=== PATIENT | female | born 1990 | race Caucasian/White ===

== ENCOUNTER → 2016-10-20 | Outpatient (CLI) | payer MEDICAID ==
[~2016-10-20] MED LIST: ETODOLAC400 MG PO; FERROUS SULFAT325 M1 PO; IMITREX50 MG OR; KEFLEX 500MG.500 MG PO; LORTAB 5/500 501 TAB PO; METHOCARBAMOL750 M1 PO; MOTRIN400 MG PO; NAPROSYN 500MG500 MG PO; NOMEDS; PERCOCET 5/3251 EACH PO; PRENATAL PLUS1 TA1 PO; SEPTRA DS 800 M1 TAB PO; VICODIN 5/500 T1 TAB PO; VOLTAREN75 MG PO; ZOFRAN4 MG PO
--- NOTE | 2016-11-03 17:38 | RADIOLOGY REPORT PS360 ---
US BIOPSY OR PARACENTESIS, US BREAST-RT COMPLETE W/AXILLA, FNA/W GUIDANCE CLINICAL INDICATION: BREAST LESION ORDERING PHYSICIAN: DARIAN FAROOQ MD PATIENT AGE: 26 years COMPARISON: 07/29/2016 ultrasound FINDINGS: US BIOPSY OR PARACENTESIS, US BREAST-RT COMPLETE W/AXILLA, FNA/W GUIDANCE HISTORY: BREAST LESION ORDERING PHYSICIAN: DARIAN FAROOQ MD PATIENT AGE: 26 years TECHNIQUE: Following obtaining informed consent, using aseptic technique and local anesthesia with buffered lidocaine, fine-needle aspiration was performed of the nodule of interest using sonographic guidance. 3 passes were made into the nodule with a 25-gauge needle. Specimen was given to cytology. Core biopsy was also obtained. 2 passes were made with a 19-gauge core biopsy needle. The patient tolerated the procedure well without evidence of immediate complications and left the ultrasound suite in stable condition. Pathology: Benign breast tissue with stromal fibrosis and changes suggestive of fibroadenoma Cytology: Negative for malignancy. Compatible with fibroadenoma IMPRESSION: Successful sonographic guided fine needle aspiration and core biopsy of the right breast showing findings consistent with a fibroadenoma
== END ==
LOC: RAD 13:22
PROC: 0H9T3ZX Drainage of Right Breast, Percutaneous Approach, Diagnostic (ICD-10-PCS; principal; 2016-10-20)
DX: N63 Unspecified lump in breast (principal)

== ENCOUNTER → 2016-11-09 | Outpatient (CLI) | payer MEDICAID ==
[2016-11-09 13:45] LABS: HEMOGLOBIN 14.6 g/dL (12.2-16.2); LYMPH # 2.7 K/mm3 (0.7-4.5); LYMPH % 27.4 % (10-50.0)
[2016-11-09 18:28] LABS: BUN 10 mg/dL (7-18)
[2016-11-09 18:38] LABS: GFR (ESTIMATED) 101 ML/MIN (59-)
== END ==
LOC: LAB 13:23
PROVIDERS: Surgery
DX: N63 Unspecified lump in breast (principal); Z01.812 Encounter for preprocedural laboratory examination

== ENCOUNTER 2016-11-18 08:58 | Day surgery (SDC) | payer MEDICAID ==
[~2016-11-18] VITALS: Ht 165.1 cm; Wt 63.5 kg
--- NOTE | 2016-11-18 13:05 | Operative Note ---
Surgeon/Diagnoses Surgeon/Master Deputy [employer] Security(s) Date of procedure: 11/18/16 Surgeon: MD Nely Farooq Master [address] Security(s): Sadiq Quiros Diagnoses Pre-op diagnosis: RIGHT breast lesion (likely fibroadenoma) Post-op diagnosis Same Procedure Procedure Procedure: Needle localized excisional biopsy of RIGHT breast lesion Indications: CARLOS CHRISTOPHER is a 26 year-old Female with a history of RIGHT breast lesion with recent core biopsy consistent with fibroadenoma. Findings: Complete excision confirmed radiographically Procedure Description: After informed consent was obtained, the patient was taken to the radiology department for localization needle placement. Please see separate report for detail. She was then transferred to the operating room and placed in the supine position. General anesthesia was induced and her RIGHT breast was prepped and draped in a sterile fashion. After infiltration of local anesthetic a curvilinear incision was made overlying the lesion. A small ellipse of skin was then excised as the lesion was very close to the skin. The underlying breast tissue was carefully dissected with electrocautery. The lesion was excised and passed off for pathologic evaluation after being marked for margin. The superficial margin was marked with a short non-dyed suture. The deep margin was marked with a long non-dyed suture. The lateral margin was marked with a long dyed suture. The superior margin was marked with a short dyed suture. Specimen radiographs confirmed appropriate and complete excision of the lesion. Electrocautery is less to achieve hemostasis. Metallic clips were placed along the wound base and margin. The deep subcutaneous tissue was reapproximated with interrupted Vicryl and skin was closed with 4-0 Monocryl in a running subcuticular manner. Steri-Strips were applied. The patient's anesthetic agents were reversed and she was transferred to recovery in stable condition. EBL (ml): 15 Anesthesia: General Complications: no immediate Specimens: RIGHT breast lesion Disposition Disposition: Stable to recovery from where she will be discharged home. She will follow-up in one week. at 1301
--- NOTE | 2016-11-18 13:12 | Anesthesia Record ---
Anesthesia Record Part II Discharge time: 1340 Destination: Same day surgery PACU nurse assessment review? Yes Patient is: Awake, Stable Anesthesia complications? No at 1312
--- NOTE | 2016-11-18 13:12 | Anesthesia Record ---
Anesthesia Record Part I Total IV fluids: 1000 EBL (ml): 10 Urine Output: 0 B/P: 138/75 % SaO2: 96 Pulse: 87 Resps: 12 Temp: 97.5 Patient is: Awake, Stable Stable to PACU at: 1310 at 1312
--- NOTE | 2016-11-18 13:54 | RADIOLOGY REPORT PS360 ---
US NEEDLE LOC RT EA ADD LESION, US BREAST-RT COMPLETE W/AXILLA DIG MAMM-DX UNI-RT W/CAD, COMPARISON: 10/20/2016 INDICATION: Right breast nodule ORDERING PHYSICIAN: DARIAN FAROOQ MD PATIENT AGE: 26 years Right breast ultrasound: Ultrasound is performed of the right breast confirm the persistent presence of a 1.3 cm solid nodule in the 6:00 region which is well-circumscribed corresponding to the previously biopsied nodule. No other abnormalities demonstrated Hook wire localization: Following obtaining informed consent using sonographic guidance under aseptic conditions and local anesthesia with 1% buffered lidocaine, a Kopan's wire was inserted into the right breast nodule at the 6:00 region using standard technique with post localization ultrasound showing the wire extending through the nodule. The patient tolerated the procedure well without evidence of medial location. Breast tissue specimen: Single specimen submitted and consent shows a requirement place with the nodule of interest within the tissue specimen. Ultrasound was also obtained demonstrating the nodule of interest. IMPRESSION: Successful wire localization of right breast nodule
[2016-11-18 20:37] VITALS: BP 119/72
== END 2016-11-18 14:15 | disposition home or self-care (01) ==
LOC: SDC 08:58
PROVIDERS: Surgery
PROC: 0HBT0ZX Excision of Right Breast, Open Approach, Diagnostic (ICD-10-PCS; principal; 2016-11-18 12:00)
DX: D48.61 Neoplasm of uncertain behavior of right breast (principal)
CPT/HCPCS: J2405

== ENCOUNTER → 2016-12-05 | Outpatient (CLI) | payer OTHER, MEDICAID ==
--- NOTE | 2016-12-05 16:19 | RADIOLOGY REPORT PS360 ---
[id number] (MIDDLE)-3 VIEWS HISTORY: Pain upon movement LEFT 3RD FINGER PAIN ORDERING PHYSICIAN: BARBARA GROVE PATIENT AGE: 26 years COMPARISON: None FINDINGS: No fracture or dislocation is evident. No significant degenerative change. No lytic or blastic change. Unremarkable soft tissues IMPRESSION: Negative left third finger
== END ==
LOC: RAD 10:48
DX: M79.645 Pain in left finger(s) (principal)

== ENCOUNTER → 2016-12-14 | Outpatient (CLI) | payer OTHER, MEDICAID ==
[2016-12-14 18:36] LABS: HEMOGLOBIN 14.1 g/dL (12.2-16.2); LYMPH # 3.5 K/mm3 (0.7-4.5); LYMPH % 33.5 % (10-50.0)
[2016-12-14 19:07] LABS: BUN 9 mg/dL (7-18)
[2016-12-14 19:34] LABS: GFR (ESTIMATED) 101 ML/MIN (59-)
[2016-12-16 08:44] LABS: Vitamin D, 25-Hydroxy 13.8 ng/mL (30.0-100.0)
[2016-12-16 09:38] LABS: Folate (Folic Acid) 11.5 ng/mL (>3.0)
== END ==
LOC: LAB 18:23
PROVIDERS: Physician Assistant
DX: S13.4XXD Sprain of ligaments of cervical spine, subsequent encounter (principal); M25.512 Pain in left shoulder; M54.2 Cervicalgia; M54.5 Low back pain; E55.9 Vitamin D deficiency, unspecified; V89.2XXD Person injured in unspecified motor-vehicle accident, traffic, subsequent encounter; R25.1 Tremor, unspecified

== ENCOUNTER 2017-01-24 08:46 | Emergency (ER) | payer MEDICAID ==
[~2017-01-24] VITALS: Ht 165.1 cm; Wt 65.8 kg
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
--- OUTSIDE RECORDS SUMMARY | 2017-01-24 08:53 | External Medical Summary Rpt | Continuity of Care Document ---
Author Author Organization Address Unknown Phone Unavailable Care Team Providers Care Chief Dietitian Name Role Phone , Unavailable Unavailable EMS [...]
--- OUTSIDE RECORDS SUMMARY | 2017-01-24 08:53 | External Medical Summary Rpt | Continuity of Care Document ---
Author Author Organization Address Unknown Phone Unavailable Care Team Providers Care Auditing Specialist Name Role Phone , Unavailable Unavailable EMS [...]
--- OUTSIDE RECORDS SUMMARY | 2017-01-24 08:53 | External Medical Summary Rpt | Continuity of Care Document ---
Author Author Organization Address Unknown Phone Unavailable Care Team Providers Care Air Crew Member Name Role Phone , Unavailable Unavailable EMS [...]
--- OUTSIDE RECORDS SUMMARY | 2017-01-24 08:53 | External Medical Summary Rpt | Continuity of Care Document ---
Author Author Organization Address Unknown Phone Unavailable Care Team Providers Care Social Media Assistant Name Role Phone , Unavailable Unavailable EMS [...]
--- OUTSIDE RECORDS SUMMARY | 2017-01-24 08:53 | External Medical Summary Rpt | Continuity of Care Document ---
Author Author Organization Address Unknown Phone Unavailable Care Team Providers Care Reverse Logistics Analyst Name Role Phone , Unavailable Unavailable EMS [...]
--- OUTSIDE RECORDS SUMMARY | 2017-01-24 08:55 | External Medical Summary Rpt | CCD ---
Demographics Preferred Language Estonian Marital Status Unknown Jain Affiliation Unknown Race Unknown Ethnic Group Unknown Author Author , AJ VALENTIN Address Unknown Phone Immunization Unable to retrieve immunization data due to connection failure with Immunization Registry. Please try again later.
--- OUTSIDE RECORDS SUMMARY | 2017-01-24 08:55 | External Medical Summary Rpt | CCD ---
Author Author Conduent Organization Conduent Address Unknown Phone Unavailable Purpose Continuity of Care Document - through 2016
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
--- OUTSIDE RECORDS SUMMARY | 2017-01-24 08:55 | External Medical Summary Rpt | CCD ---
Demographics Preferred Language American Marital Status Unknown Anglican Affiliation Unknown Race Unknown Ethnic Group Unknown Author Author , AJ VALENTIN Address Unknown Phone Immunization Unable to retrieve immunization data due to connection failure with Immunization Registry. Please try again later.
--- OUTSIDE RECORDS SUMMARY | 2017-01-24 08:56 | External Medical Summary Rpt ---
Author Author HOMERO Reddy, HOMERO Kreyonic Organization [employer] Address Unknown Phone Unavailable Results Cobalamin (Vitamin B12) [Mass/volume] in Serum Observa Value Referen Units Interpr Notes Date tion ce etation Range Cobalamin 211 - 946 pg/mL No Performed Dec 14 (Vitamin informati at: CB 2016 3:10 B12) on in - [facility] PM [Mass/vol source ume] in data [address] [address] Serum 0 [place], [place] [id number] Industrial Chemistry Teacher: Michael Phelps PhD, Phone: [phone] Folate [Mass/volume] in Serum or Plasma Observa Value Referen Units Interpr Notes Date tion ce etation Range Folate >3.0 ng/mL No A serum Dec 14 [Mass/vol informati folate 2016 3:10 ume] in on in concentra PM Serum or source tion of Plasma data less than 3.1 ng/mL isconside red to represent clinical deficienc y. 25-Hydroxyvitamin D [Mass/volume] in Serum or Plasma Observa Value Referen Units Interpr Notes Date tion ce etation Range 25-Hydrox 30.0 - ng/mL Low Vitamin D Oct 25 yvitamin 100.0 2016 3:10 D deficienc PM [Mass/vol y has ume] in been Serum or defined Plasma by the [place] ofMedicin e and an Endocrine Society practice guideline as alevel of serum 25-OH vitamin D less than 20 ng/mL (1,2).The Endocrine Society went on to further define vitamin Dinsuffic iency as a level between 21 and 29 ng/mL (2).1. IOM (Institut e of Medicine) . 2010. Dietary reference intakes for calcium and D. [place]: [employer] al [employer].2. Maureen MF, Rizwan NC, Joslyn Kendall ERIC, et al.Evalua tion, treatment , and preventio n of vitamin Ddeficien cy: an Endocrine Society clinical practiceg fadumo. JCEM. 2010; 96(7):191 1-30.Perf ormed at: CB - [facility] [address] [address] [address] [place], [place] [id number] Industrial Chemistry Teacher: Michael Phelps PhD, Phone: [phone] Comprehensive metabolic 2000 panel in Serum or Plasma Observa Value Referen Units Interpr Notes Date tion ce etation Range Albumin/G 1.1 - 1.8 No Low No Nov 25 lobulin informati informati 2016 3:10 [Mass on in on in PM ratio] in source source Serum or data data Plasma Albumin 3.4 - 5.0 gm/dL Normal No Nov 25 [Mass/vol informati 2017 3:10 ume] in on in PM Serum or source Plasma data Alkaline 46 - 116 U/L High No Nov 25 phosphata informati 2017 3:10 se on in PM [Enzymati source c data activity/ volume] in Serum or Plasma Bilirubin 0.2 - 1.0 mg/dL Normal No Dec 14 .total informati 2016 3:10 [Mass/vol on in PM ume] in source Serum or data Plasma Urea 7 - 18 mg/dL Normal No Nov 25 nitrogen informati 2016 3:10 [Mass/vol on in PM ume] in source Serum or data Plasma Calcium 8.5 - mg/dL Normal No Nov 25 [Mass/vol 10.1 informati 2017 3:10 ume] in on in PM Serum or source Plasma data Chloride 98 - 107 mmoL/L Normal No Dec 14 [Moles/vo informati 2016 3:10 lume] in on in PM Serum or source Plasma data Carbon 21.0 - mmoL/L Normal No Dec 14 dioxide, 32.0 informati 2016 3:10 total on in PM [Moles/vo source lume] in data Serum or Plasma Creatinin 0.55 - mg/dL Normal No Nov 25 e 1.02 informati 2016 3:10 [Mass/vol on in PM ume] in source Serum or data Plasma Estimated 59- ML/MIN No REFERENCE Oct 25 informati RANGE: 2017 3:10 glomerula on in >60 PM r source ML/MIN/1. filtratio data 73 SQUARE n rate METERSIf (GF this patient is -A merican, then multiply theresult by 1.210. Globulin 1.3 - 3.2 gm/dL High No Dec 14 [Mass/vol informati 2016 3:10 ume] in on in PM Serum source data Glucose 74 - 106 mg/dL Normal No Dec 14 [Mass/vol informati 2016 3:10 ume] in on in PM Serum or source Plasma data Potassium 3.5 - 5.1 mmoL/L Normal No Dec 142016 3:10 [Moles/vo on in PM lume] in source Serum or data Plasma Sodium 136 - 145 mmoL/L Normal No Dec 14 [Moles/vo 2016 3:10 lume] in on in PM Serum or source Plasma data Aspartate 15 - 37 U/L Normal No Dec 142016 3:10 aminotran on in PM sferase source [Enzymati data c activity/ volume] in Serum or Plasma Alanine 12 - 78 U/L Normal No Dec 14 aminotran 2016 3:10 sferase on in PM [Enzymati source c data activity/ volume] in Serum or Plasma Protein 6.4 - 8.2 gm/dL Normal No Dec 14 [Mass/vol inform2016 3:10 ume] in on in PM Serum or source Plasma data Thyroxine (T4) free [Mass/volume] in Serum or Plasma Observa Value Referen Units Interpr Notes ti etation Range Thyroxine 0.76 - ng/dL Normal No Dec 14 (T4) 1.46 2016 3:10 free on in PM [Mass/vol source ume] in data Serum or Plasma Magnesium [Moles/volume] in Unspecified specimen Observa Value Referen Units Interpr Notes Date ti ce etation Range Magnesium 1.4 - 2.2 mg/dL Normal No Dec 142016 3:10 [Moles/vo on in PM lume] in source Unspecifi data ed specimen Thyrotropin [Units/volume] in Serum or Plasma Observa Value Referen Units Interpr Notes ti ce etation Range Thyrotrop 0.358 - uIU/ml Normal No Dec 14 in 3.740 2016 3:10 [Units/vo on in PM lume] in source Serum or data Plasma CBC W Auto Differential panel in Blood Observa Value Referen Units Interpr Notes Date ti ce etation Range Basophils 0 - 0.2 K/MM3 Normal No Dec 142016 3:10 [#/volume on in PM ] in source Blood by data Automated count Basophils 0.1 - 2.0 % Normal No Dec 14 /100 informati 2016 3:10 leukocyte on in PM s in source Blood by data Automated count Eosinophi 0.0 - 0.4 K/mm3 High No Dec 14 ls informati 2016 3:10 [#/volume on in PM ] in source Blood by data Automated count Eosinophi 0.1 - % High No Dec 14 ls/100 12.0 informati 2016 3:10 leukocyte on in PM s in source Blood by data Automated count Granulocy 1.8 - 7.8 K/mm3 Normal No Dec 14 angy informati 2016 3:10 [#/volume on in PM ] in source Blood by data Automated count Granulocy 37.0 - % Normal No Dec 14 angy/100 80.0 informati 2016 3:10 leukocyte on in PM s in source Blood by data Automated count Hematocri 37.0 - % Normal No Dec 14 t [Volume 47.0 informati 2016 3:10 on in PM Fraction] source of Blood data Hemoglobi 12.2 - g/dL Normal No Dec 14 n 16.2 informati 2016 3:10 [Mass/vol on in PM ume] in source Blood data Lymphocyt 0.7 - 4.5 K/mm3 Normal No Dec 14 es 2016 3:10 [#/volume on in PM ] in source Unspecifi data ed specimen by Automated count Lymphocyt 10 - 50.0 % Normal No Dec 14 es 2016 3:10 [#/volume on in PM ] in source Unspecifi data ed specimen by Automated count Erythrocy 27 - 31.2 pg Normal No Dec 14 te mean inform2016 3:10 corpuscul on in PM ar source hemoglobi data n [Entitic mass] Erythrocy 31.8 - g/dl Normal No Dec 14 te mean 35.4 informati 2016 3:10 corpuscul on in PM ar source hemoglobi data n concentra tion [Mass/vol ume] by Automated count Erythrocy 82.2 - fl Normal No Dec 14 te mean 97.8 informati 2016 3:10 corpuscul on in PM ar volume source [Entitic data volume] by Automated count Monocytes 0.1 - 1.0 K/mm3 Normal No Dec 142016 3:10 [#/volume on in PM ] in source Blood by data Automated count Monocytes 1.7 - 9.3 % Normal No Dec 14 /100 informati 2016 3:10 leukocyte on in PM s in source Blood by data Automated count Platelet 7.4 - fl Normal No Dec 14 mean 10.4 inform2016 3:10 volume on in PM [Entitic source volume] data in Blood by Automated count Platelets 142 - 424 K/mm3 Normal No Dec 14 informati 2016 3:10 [#/volume on in PM ] in source Blood data Erythrocy 4.2 - 5.4 M/mm3 Normal No Dec 14 angy informati 2016 3:10 [#/volume on in PM ] in source Amniotic data fluid Erythrocy 11.5 - % Normal No Dec 14 te 17.5 informati 2016 3:10 distribut on in PM ion width source [Entitic data volume] by Automated count Leukocyte 4.8 - K/MM3 Normal No Dec 14 s 10.8 informati 2016 3:10 [#/volume on in PM ] in source Blood data Choriogonadotropin.beta subunit [Units] in 24 hour Urine Observa Value Referen Units Interpr Notes Date tion ce etation Range Choriogon NEG No No No Sep 29 adotropin informati informati informati 2016 9:15 .beta on in on in on in AM subunit source source source [Units] data data data in 24 hour Urine Basic metabolic panel in Blood Observa Value Referen Units Interpr Notes Date tion ce etation Range Urea 7 - 18 mg/dL Normal No Sep 20 nitrogen informati 2016 1:24 [Mass/vol on in PM ume] in source Serum or data Plasma Calcium 8.5 - mg/dL Normal No Sep 20 [Mass/vol 10.1 informati 2016 1:24 ume] in on in PM Serum or source Plasma data Chloride 98 - 107 mmoL/L Normal No Sep 20 [Moles/vo informati 2016 1:24 lume] in on in PM Serum or source Plasma data Carbon 21.0 - mmoL/L Normal No Sep 20 dioxide, 32.0 informati 2016 1:24 total on in PM [Moles/vo source lume] in data Serum or Plasma Creatinin 0.55 - mg/dL Normal No Sep 20 e 1.02 informati 2016 1:24 [Mass/vol on in PM ume] in source Serum or data Plasma Estimated 59- ML/MIN No REFERENCE Sep 20 informati RANGE: 2017 1:24 glomerula on in >60 PM r source ML/MIN/1. filtratio data 73 SQUARE n rate METERSIf (GF this patient is -A merican, then multiply theresult by 1.210. Glucose 74 - 106 mg/dL Normal No Sep 20 [Mass/vol informati 2017 1:24 ume] in on in PM Serum or source Plasma data Potassium 3.5 - 5.1 mmoL/L Normal No Sep 20 informati 2017 1:24 [Moles/vo on in PM lume] in source Serum or data Plasma Sodium 136 - 145 mmoL/L Normal No Sep 20 [Moles/vo informati 2017 1:24 lume] in on in PM Serum or source Plasma data Choriogonadotropin [Units/volume] in Serum or Plasma Observa Value Referen Units Interpr Notes Date tion ce etation Range Choriogon NEG No No No Sep 20 adotropin informati informati informati 2016 1:24 on in on in on in PM [Units/vo source source source lume] in data data data Serum or Plasma CBC W Auto Differential panel in Blood Observa Value Referen Units Interpr Notes Date tion ce etation Range Basophils 0 - 0.2 K/MM3 Normal No Sep 20 informati 2017 1:24 [#/volume on in PM ] in source Blood by data Automated count Basophils 0.1 - 2.0 % Normal No Sep 20 /100 informati 2016 1:24 leukocyte on in PM s in source Blood by data Automated count Eosinophi 0.0 - 0.4 K/mm3 High No Sep 20 ls informati 2016 1:24 [#/volume on in PM ] in source Blood by data Automated count Eosinophi 0.1 - % High No Sep 20 ls/100 12.0 informati 2016 1:24 leukocyte on in PM s in source Blood by data Automated count Granulocy 1.8 - 7.8 K/mm3 Normal No Sep 20 angy informati 2016 1:24 [#/volume on in PM ] in source Blood by data Automated count Granulocy 37.0 - % Normal No Sep 20 angy/100 80.0 informati 2016 1:24 leukocyte on in PM s in source Blood by data Automated count Hematocri 37.0 - % Normal No Sep 20 t [Volume 47.0 informati 2017 1:24 on in PM Fraction] source of Blood data Hemoglobi 12.2 - g/dL Normal No Sep 20 n 16.2 informati 2017 1:24 [Mass/vol on in PM ume] in source Blood data Lymphocyt 0.7 - 4.5 K/mm3 Normal No Sep 20 es informati 2017 1:24 [#/volume on in PM ] in source Unspecifi data ed specimen by Automated count Lymphocyt 10 - 50.0 % Normal No Sep 20 es informati 2016 1:24 [#/volume on in PM ] in source Unspecifi data ed specimen by Automated count Erythrocy 27 - 31.2 pg Normal No Sep 20 te mean informati 2017 1:24 corpuscul on in PM ar source hemoglobi data n [Entitic mass] Erythrocy 31.8 - g/dl Normal No Sep 20 te mean 35.4 informati 2016 1:24 corpuscul on in PM ar source hemoglobi data n concentra tion [Mass/vol ume] by Automated count Erythrocy 82.2 - fl Normal No Sep 20 te mean 97.8 informati 2016 1:24 corpuscul on in PM ar volume source [Entitic data volume] by Automated count Monocytes 0.1 - 1.0 K/mm3 Normal No Sep 20 informati 2017 1:24 [#/volume on in PM ] in source Blood by data Automated count Monocytes 1.7 - 9.3 % Normal No Sep 20 /100 informati 2017 1:24 leukocyte on in PM s in source Blood by data Automated count Platelet 7.4 - fl Normal No Sep 20 mean 10.4 informati 2017 1:24 volume on in PM [Entitic source volume] data in Blood by Automated count Platelets 142 - 424 K/mm3 Normal No Sep 20 informati 2017 1:24 [#/volume on in PM ] in source Blood data Erythrocy 4.2 - 5.4 M/mm3 Normal No Sep 20 angy informati 2017 1:24 [#/volume on in PM ] in source Amniotic data fluid Erythrocy 11.5 - % Normal No Sep 20 te 17.5 informati 2016 1:24 distribut on in PM ion width source [Entitic data volume] by Automated count Leukocyte 4.8 - K/MM3 Normal No Sep 20 s 10.8 informati 2016 1:24 [#/volume on in PM ] in source Blood data CHLAMYDIA AND GONORRHEA TESTING Observa Value Referen Units Interpr Notes Date tion ce etation Range COLLECT MARIMAR No No No No Jul 26 OR informa informa informa informa 2017 tion in tion in tion in tion in 10:00 source source source source AM data data data data ETHNICI WHITE, No No No No Jul 26 TY NON-HIS informa informa informa informa 2017 PANIC tion in tion in tion in tion in 10:00 source source source source AM data data data data KIT 11-30-2 No No No No Jul 26 EXPIRAT 017 informa informa informa informa 2017 ION tion in tion in tion in tion in 10:00 DATE source source source source AM data data data data SYMPTOM NO No No No No Jul 26 S informa informa informa informa 2017 tion in tion in tion in tion in 10:00 source source source source AM data data data data REASON INITIAL No No No No Jul 26 FOR FAMILY informa informa informa informa 2017 REQUEST tion in tion in tion in tion in 10:00 PLANNIN source source source source AM G VISIT data data data data SPECIME URINE No No No No Jul 26 N informa informa informa informa 2017 SOURCE tion in tion in tion in tion in 10:00 source source source source AM data data data data PREGNAN NO No No No No Jul 26 T informa informa informa informa 2017 tion in tion in tion in tion in 10:00 source source source source AM data data data data CHART N.A No No No No Jul 26 NUMBER informa informa informa informa 2017 tion in tion in tion in tion in 10:00 source source source source AM data data data data Chlamyd NEGATIV No No No NEGATIV Jul 26 ia E informa informa informa E 2017 trachom tion in tion in tion in RESULT= 10:00 atis source source source WITHIN AM rRNA data data data NORMAL [Presen ce] in LIMITSP Unspeci OSITIVE fied specime RESULT= n by Probe & ABNORMA target LEQUIVO FLAVIA amplifi RESULT= cation method INDETER MINATEU NSATISF ACTORY RESULT= INVALID Neisser NEGATIV No No No NEGATIV Adam 6 ia E informa informa informa E 2017 gonorrh tion in tion in tion in RESULT= 10:00 oeae source source source WITHIN AM rRNA data data data NORMAL [Presen ce] in LIMITSP Unspeci OSITIVE fied specime RESULT= n by Probe & ABNORMA target LEQUIVO FLAVIA amplifi RESULT= cation method INDETER MINATEU NSATISF ACTORY RESULT= INVALID THE APTIMA COMBO 2 ASSAY IS NOT INTENDE D FOR THE EVALUAT ION OF SUSPECT EDSEXUA L ABUSE OR FOR OTHER MEDICO- LEGAL INDICAT IONS. FOR THOSE PATIENT S FORWHOM A FALSE POSITIV E RESULT MAY HAVE ADVERSE PSYCHO- SOCIAL IMPACT, [facility] MMENDS RETESTI NG.\.br \This report contain s patient informa tion that must be protect ed in accorda nce with the Health Insuran ce Portabi lity and Account ability Act. CHLAMYDIA AND GONORRHEA TESTING Observa Value Referen Units Interpr Notes Date tion ce etation Range COLLECT MARIMAR No No No No Jul 26 OR informa informa informa informa 2017 tion in tion in tion in tion in 10:00 source source source source AM data data data data ETHNICI WHITE, No No No No Jul 26 TY NON-HIS informa informa informa informa 2017 PANIC tion in tion in tion in tion in 10:00 source source source source AM data data data data KIT 11-30-2 No No No No Jul 26 EXPIRAT 017 informa informa informa informa 2017 ION tion in tion in tion in tion in 10:00 DATE source source source source AM data data data data SYMPTOM NO No No No No Jul 26 S informa informa informa informa 2017 tion in tion in tion in tion in 10:00 source source source source AM data data data data REASON INITIAL No No No No Jul 26 FOR FAMILY informa informa informa informa 2017 REQUEST tion in tion in tion in tion in 10:00 PLANNIN source source source source AM G VISIT data data data data SPECIME URINE No No No No Jul 26 N informa informa informa informa 2017 SOURCE tion in tion in tion in tion in 10:00 source source source source AM data data data data PREGNAN NO No No No No Jul 26 T informa informa informa informa 2017 tion in tion in tion in tion in 10:00 source source source source AM data data data data CHART N.A No No No No Jul 26 NUMBER informa informa informa informa 2017 tion in tion in tion in tion in 10:00 source source source source AM data data data data Chlamyd Pending No No No No Jul 26 ia informa informa informa informa 2017 trachom tion in tion in tion in tion in 10:00 atis source source source source AM rRNA data data data data [Presen ce] in Unspeci fied specime n by Probe & target amplifi cation method Neisser Pending No No No \.br\Jul 26 ia informa informa informa is 2017 gonorrh tion in tion in tion in report 10:00 oeae source source source contain AM rRNA data data data s [Presen patient ce] in Unspeci informa fied tion specime that n by must be Probe & target protect ed in amplifi accorda cation nce method with the Health Insuran ce Portabi lity and Account ability Act.
--- OUTSIDE RECORDS SUMMARY | 2017-01-24 08:56 | External Medical Summary Rpt ---
Author Author HOMERO Reddy, HOMERO Salezeo Organization [employer] Address Unknown Phone Unavailable Results Cobalamin (Vitamin B12) [Mass/volume] in Serum Observa Value Referen Units Interpr Notes Date tion ce etation Range Cobalamin 211 - 946 pg/mL No Performed Dec 14 (Vitamin informati at: CB 2016 3:10 B12) on in - [facility] PM [Mass/vol source ume] in data [address] [address] Serum 0 [place], [place] [id number] Cylinder Worker: Michael Phelps PhD, Phone: [phone] Folate [Mass/volume] in Serum or Plasma [...] been Serum or defined Plasma by the [place] ofMedicin e and an Endocrine Society practice [...] 96(7):191 1-30.Perf ormed at: CB - [facility] [address] [address] [place], [place] [id number] Cylinder Worker: Michael Phelps PhD, Phone: [phone] Comprehensive metabolic 2000 panel in Serum [...] MAY HAVE ADVERSE PSYCHO- SOCIAL IMPACT, [facility] MM[facility] RETESTI NG.\.br \This report contain s [...]
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
[2017-01-24 09:39] LABS: HEMOGLOBIN 15.3 g/dL (12.2-16.2); LYMPH # 4.2 K/mm3 (0.7-4.5); LYMPH % 31.7 % (10-50.0)
[2017-01-24] MEDS ORDERED: NAPROXEN SODIU500 MG PO (11:32)
[2017-01-24 11:37] VITALS: BP 116/73
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
== END 2017-01-24 11:38 | disposition home or self-care (01) ==
LOC: ER 08:46
PROVIDERS: Emergency Medicine
DX: S70.02XA Contusion of left hip, initial encounter (principal); F17.210 Nicotine dependence, cigarettes, uncomplicated; W10.9XXA Fall (on) (from) unspecified stairs and steps, initial encounter; Y92.009 Unspecified place in unspecified non-institutional (private) residence as the place of occurrence of the external cause